=== PATIENT | male | born 1970 | race Caucasian/White ===

== ENCOUNTER 2018-08-13 19:28 | Emergency (ER) | payer OTHER ==
[~2018-08-13] VITALS: Ht 167.6 cm; Wt 93.0 kg
[2018-08-13 19:40] VITALS: Ht 167.6 cm; Wt 93.0 kg
[2018-08-13 20:13] LABS: BASOPHIL % 0.3 % (0-2); PLATELET COUNT 153 x10^3mcL (130-400); RED CELL DISTRIBUTION WIDTH 13.9 % (11.5-14.5)
[2018-08-13 20:21] LABS: CALCIUM 8.1 mg/dL (8.5-10.1); CARBON DIOXIDE 26.5 mmol/L (21-32); CHLORIDE SERUM 103 mmol/L (98-107); CREATININE SERUM 0.8 mg/dL (0.7-1.3); GFR1 > 60 mL/min; GLUCOSE SERUM 290 mg/dL (74-106); SODIUM SERUM 137 mmol/L (136-145)
[2018-08-13 20:26] LABS: ALBUMIN 3.4 g/dL (3.4-5.0); ALKALINE PHOSPHATASE 82 U/L (46-116); ALT/SGPT 45 U/L (16-63); AST/SGOT 28 U/L (15-37); BILIRUBIN TOTAL 0.27 mg/dL (0.20-1.00); TOTAL PROTEIN, SERUM 6.9 g/dL (6.4-8.2)
[2018-08-13] MEDS ORDERED: METFORMIN HYDR500 M1 (21:19)
[2018-08-13] MEDS ORDERED: GABAPENTIN100 M2 (21:19)
[2018-08-13] MEDS ORDERED: BAYER ASPIRIN R81 MG (21:19)
[2018-08-13] MEDS ORDERED: PAXIL10 MG (21:19)
[2018-08-13 22:24] VITALS: BP 146/85
== END 2018-08-13 22:24 | disposition other institution (70) ==
LOC: ED 19:28
PROVIDERS: Emergency Medicine
DX: J45.909 Unspecified asthma, uncomplicated (principal); R56.9 Unspecified convulsions; Z91.14 Patient's other noncompliance with medication regimen
CPT/HCPCS: J1165